=== PATIENT | male | born 2000 | race Caucasian/White ===

== ENCOUNTER 2019-11-08 01:54 | Emergency (ER) | payer OTHER ==
[~2019-11-08] VITALS: Ht 177.8 cm; Wt 104.3 kg
--- NOTE | 2019-11-08 01:54 | NUR ---
PT BIB [facility], PREBOOK. TAKEN TO CHAIR A
[2019-11-08 02:01] VITALS: BP 147/81
[2019-11-08] MEDS ORDERED: ACETAMINOPHEN 325 MG TAB PO STA (02:22)
[2019-11-08] MEDS ORDERED: ACETAMINOPHEN EXTRA STRENGTH 500 MG TAB ONE (02:55)
[2019-11-08] MEDS ORDERED: ACETAMINOPHEN EXTRA STRENGTH 500 MG TAB PO ONE (03:00)
[2019-11-08 03:41] VITALS: BP 147/81
--- NOTE | 2019-11-08 03:41 | NUR ---
Patient discharged with v/s stable. Written and verbal after care instructions given and explained. Patient verbalized understanding. Police with in custody. All questions addressed prior to discharge. Advised to follow up with [facility]D.
== END 2019-11-08 03:41 ==
LOC: MED 01:54
DX: M25.561 Pain in right knee (principal); Z88.8 Allergy status to other drugs, medicaments and biological substances; V89.2XXA Person injured in unspecified motor-vehicle accident, traffic, initial encounter; Y93.89 Activity, other specified; Y92.89 Other specified places as the place of occurrence of the external cause; Y99.8 Other external cause status
CPT/HCPCS: 73562; 99283